=== PATIENT | female | born 2005 | race Caucasian/White ===

== ENCOUNTER 2025-06-03 10:22 | Emergency (ER) | payer OTHER, SELFPAY ==
[2025-06-03 10:23] VITALS: BP 112/71; PULSE 87; RESP 17; TEMP 35.9; O2SAT 100
--- NOTE | 2025-06-03 10:39 | EKG12_ITS ---
Test Reason : Blood Pressure : */* mmHG Vent. Rate : 77 BPM Atrial Rate : 77 BPM P-R Int : 108 ms QRS Dur : 80 ms QT Int : 400 ms P-R-T Axes : 51 89 59 degrees QTcB Int : 452 ms Sinus rhythm with sinus arrhythmia with short MD Otherwise normal ECG Confirmed by Nadeem Díaz ([id number]), communications editor MARY NEFF ([id number]) on 06/05/2025 10:51:03 AM Referred By: Confirmed By: Nadeem Díaz
--- NOTE | 2025-06-03 10:40 | EDS_ITS ---
HPI History of Present Illness Chief Complaint: Syncope Detail of Chief Complaint: Syncope Informant: patient Narrative Narrative: Patient presents with a syncopal episode while in the [employer] today. 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 She remembers watching the [employer] and typically she is not bothered by IVs and such. She then remembers feeling lightheaded and sweaty and got a little bit of tunnel vision lasting she remembers she was on the floor. She is never had an episode like this before. She describes some heartburn today and felt a little bit sweaty earlier this morning when she had the heartburn. While up on the floor earlier today she had some episodes of feeling lightheaded that passed easily. She is currently on her menstrual period and does not think she is . No heart history. Denies chest pain or palpitations or racing heart. PFSH PFSH Medical History no medical history Allergy/AdvReac Type Severity Reaction Status Date / Time No Known Allergies Allergy Verified 06/03/25 10:24 Family History no significant family his Surgical History no surgical history Social History Smoking Status: Never smoker ROS ROS ED Review of Systems ROS Unobtainable: other Constitutional Constitutional ED: Reports lethargy; Denies chills, fever(s), sweats or weight loss Eyes Eyes: Denies blurry vision, change in vision or diplopia ENT ENT ED: Denies rhinorrhea or sore throat Cardiovascular Cardiovascular: Denies chest pain, orthopnea or racing heartbeat Respiratory/Chest Respiratory/Chest: Denies cough, dyspnea, dyspnea on exertion, orthopnea or sputum Gastrointestinal Gastrointestinal: Denies abdominal pain, diarrhea, nausea or vomiting Genitourinary Genitourinary ED: Denies dysuria, hematuria or urinary frequency Musculoskeletal Musculoskeletal: Reports other Details: Right elbow pain ; Denies arthralgias, back pain, myalgias or neck pain Integumentary Denies abscess, Abrasions or rash Neurologic Neurologic: Reports other Details: Syncopal episode ; Denies headache(s) or weakness Psychiatric Psychiatric: Denies anxiety, depression or suicidal thoughts Endocrine Endocrinology: Denies polydipsia, polyphagia or polyuria Hematologic/Lymphatic Hematologic/Lymphatic: Denies easy bleeding, easy bruising or lymphadenopathy Allergic/Immunologic Allergic/Immunologic ED: Denies mouth swelling, tongue swelling or urticaria EXAM Physical Exam Const Vital Signs: 06/03/25 10:23 06/03/25 11:12 06/03/25 11:12 Temperature 96.7 F L Temperature Source Temporal Pulse Rate 87 Pulse Rate [Lying] 74 Pulse Rate [Sitting (for 1 minute prior to obtaining)] 77 Pulse Rate [Standing (for 1 minute prior to obtaining)] 68 Respiratory Rate 17 Respiratory Effort Normal Non-Labored Respiratory Pattern Normal Blood Pressure 112/71 Blood Pressure [Lying] 117/85 H Blood Pressure [Sitting (for 1 minute prior to obtaining)] 118/80 Blood Pressure [Standing (for 1 minute prior to obtaining)] 119/80 Blood Pressure Mean 84 Blood Pressure Mean [Lying] 95 Blood Pressure Mean [Sitting (for 1 minute prior to obtaining)] 92 Blood Pressure Mean [Standing (for 1 minute prior to obtaining)] 93 Pulse Ox 100 Oxygen Delivery Method Room Air 06/03/25 12:00 Temperature Temperature Source Pulse Rate 80 Pulse Rate [Lying] Pulse Rate [Sitting (for 1 minute prior to obtaining)] Pulse Rate [Standing (for 1 minute prior to obtaining)] Respiratory Rate 16 Respiratory Effort Respiratory Pattern Blood Pressure 100/74 Blood Pressure [Lying] Blood Pressure [Sitting (for 1 minute prior to obtaining)] Blood Pressure [Standing (for 1 minute prior to obtaining)] Blood Pressure Mean 82 Blood Pressure Mean [Lying] Blood Pressure Mean [Sitting (for 1 minute prior to obtaining)] Blood Pressure Mean [Standing (for 1 minute prior to obtaining)] Pulse Ox 99 Oxygen Delivery Method Positive well nourished and well developed General Appearance ED: well developed and NAD HEENT Reports TM's clear and moist mucous membranes normocephalic and atraumatic; Negative for trauma or tenderness Tympanic Membrane ED: Yes TM's clear Eyes PERRL and EOMs intact bilaterally General Eye ED: Negative for pale conjunctiva or scleral icterus Neck no lymphadenopathy, supple and no JVD General: Negative for tenderness Chest Wall inspection of chest normal and palpation of chest normal Chest: Negative for tenderness Resp normal respiratory effort and clear to auscultation bilaterally Effort and Inspection: Negative for respiratory distress or pain with movement Auscultation: Negative for rhonchi, wheezes or diminished lung sounds Cardio regular rate, regular rhythm, S1 normal heart sound, S2 normal heart sound and no murmurs Peripheral Pulses: pulses 2+ throughout GI normal to inspection, nondistended, normoactive bowel sounds, soft to palpation, non-tender, non-distended and no masses Back/Spine no CVA tenderness and no thoracic nor lumbar tenderness Extremity Extremity Narrative: Right elbow-patient has small area of ecchymosis and bruising to the posterior o lecranon. No obvious deformity. Good range of motion but somewhat painful. Pain with pronation supination at the elbow. Neurovascular intact distally. General Extremety ED: Negative for edema General Extremity: Negative for edema Neuro oriented x3, CN's II-XII intact bilaterally, no sensory deficits noted and gait normal Sensorium / Orientation: awake, alert, oriented to person, oriented to place and oriented to time Motor Exam: strength 5/5 throughout and strength abnormal Psych mental status grossly normal Skin no rashes or lesions noted and no wounds MDM MDM MDM Narrative Medical decision making narrative: Patient presents to the emergency department after a syncopal episode. Clinically she looks well. Suspect likely vasovagal episode. She has been having some heartburn though and describes some intermittent abdominal discomfort. Currently on her menstrual period. EKG obtained on arrival showed sinus rhythm with ventricular rate of 77 bpm with no acute ST segment changes. No evidence of delta wave. She did have a short MD interval. I did obtain an IV and orthostatics which were negative. I ordered a liter of the same fluid bolus. CBC with differential obtained showed a white count of 19.8 which I suspect is likely reactive. Hemoglobin 14.2 and platelet count of 343. Chemistries unremarkable. hCG was negative. X-rays of the right shoulder and right elbow obtained interpreted by myself as no evidence of fracture or dislocation. On repeat exam she is doing well. I did give her some ibuprofen. Will discharge to home. Lab Data Attestation: I reviewed the patient's lab results. Labs: Laboratory Results - last 24 hr 06/03/25 11:05 WBC 19.8 H RBC 5.25 Hgb 14.2 Hct 43.7 MCV 83.2 MCH 27.0 MCHC 32.5 RDW Std Deviation 37.4 RDW Coeff of [place] 12.5 Plt Count 343 MPV 9.3 Immature Gran % (Auto) 0.600 Neut % (Auto) 87.1 H Lymph % (Auto) 5.8 L [place] % (Auto) 5.7 Eos % (Auto) 0.5 Baso % (Auto) 0.3 Absolute Neuts (auto) 17.3 H Absolute Lymphs (auto) 1.15 Nucleated RBC % 0 Sodium 140 Potassium 3.9 Chloride 105 Carbon Dioxide 23.5 Anion Gap 11 BUN 14 Creatinine 0.76 Estim Creat Clear Calc 106.96 Est GFR (MDRD) Non-Af 115 BUN/Creatinine Ratio 18.4 Glucose 121 H Calcium 9.4 Serum , Qual NEGATIVE Radiography Diagnostic Testin view x-ray of right shoulder obtained interpreted by myself as no evidence of fracture or dislocation. Three-view x-rays of the right elbow interpreted by myself as no evidence of fracture or dislocation. EKG Initial EKG: Attestation: I personally reviewed and interpreted this EKG as follows: Comments: Sinus rhythm with ventricular rate of 77 bpm with short MD. Discharge Plan Triage Chief Complaint: Syncope ED Provider: Nilda Inman Dx/Rx/DC Orders Clinical Impression: Syncope, vasovagal, Contusion of elbow, right Instructions: ED Contusion, Elbow, ED Fainting, Vagal Reaction Primary Care Provider: GALE SKINNER Referrals: NOT,DEFINED [Non-Staff, None] Activity Restrictions/Additional Instructions: Follow-up with your primary care physician within the next 5 to 7 days. Print Language: Samoan Disposition Disposition: Home, Self Care
[2025-06-03] MEDS: Lidocaine 2% Viscous15 ML UDC 15 ML PO (11:02)
[2025-06-03] MEDS: 0.9% Normal Saline (1000mL) 1,000 ML 1000 ML IV (11:04)
[2025-06-03 11:12] VITALS: BP 117/85; BP 118/80; BP 119/80; PULSE 68; PULSE 74; PULSE 77; BMI 19.8
[2025-06-03 11:14] LABS: Hematocrit 43.7 % (37-47); Hemoglobin 14.2 g/dL (12.0-15.0); Immature Granulocytes Count 0.110 X10^3/uL (0.0-0.0); Mean Corp Hgb Conc 32.5 g/dL (32-36); Mean Corpuscular Volume 83.2 fL (81-99); Mean Platelet Vol. 9.3 fl (6.2-12.0); NRBC Flagged by Analyzer 0 % (0-5); Platelet Count 343 K/mm3 (150-450); RBC Distribution Width CV 12.5 % (11.6-14.6); RBC Distribution Width SD 37.4 fl (35.1-43.9); Red Blood Count 5.25 M/mm3 (4.2-5.4); White Blood Count 19.8 K/mm3 (4.4-11.0)
[2025-06-03 11:24] LABS: Internal QC Validated? YES +Cl - CLEAR BKGD; Pregnancy, Serum, hCG Quali. NEGATIVE Negative
[2025-06-03 11:25] LABS: Record Kit Lot#, Serum Preg. 0000980607
[2025-06-03 11:49] LABS: Anion Gap 11 (5-15); BUN 14 mg/dL (4-19); BUN/Creat Ratio 18.4 RATIO (10-20); Calcium,Total 9.4 mg/dL (7.6-11.0); Carbon Dioxide 23.5 mmol/L (21.0-32.0); Chloride 105 mmol/L (98-108); Estimated Creatinine Clearance 106.96 ml/min (50-250); Glucose 121 mg/dL (70-99); Potassium 3.9 mmol/L (3.3-5.1)
[2025-06-03 12:00] VITALS: BP 100/74; PULSE 80; RESP 16; O2SAT 99
--- NOTE | 2025-06-03 12:22 | RAD_ITS ---
PROCEDURE: ELBOW MIN 3 VIEWS 06/03/2025 REASON FOR EXAM: FALL TECHNIQUE: Procedure Code: RADEL Modality: DX Procedure: ELBOW MIN 3 VIEWS Laterality: Right elbow COMPARISON: None FINDINGS: Bones: No fracture seen. Joints: Normal alignment. Joint spaces preserved. No arthropathic features. Soft tissues: Soft tissues are unremarkable. Other: RAD/Elbow min 3 Views IMPRESSION: No acute abnormality is seen. Reading Location: [place] [id number]
--- NOTE | 2025-06-03 12:27 | RAD_ITS ---
PROCEDURE: SHOULDER MIN 2 VIEWS 06/03/2025 REASON FOR EXAM: FALL TECHNIQUE: Procedure Code: RADSH Modality: DX Procedure: SHOULDER MIN 2 VIEWS Laterality: Right shoulder. COMPARISON: None FINDINGS: Bones: No fracture seen. Joints: Grade 1 right AC joint subluxation. Soft tissues: Soft tissues are unremarkable. Other: RAD/Shoulder min 2 Views IMPRESSION: Grade 1 right AC joint subluxation. Reading Location: [place] [id number]
[2025-06-03 12:52] VITALS: BP 100/74; PULSE 80; RESP 16; TEMP 36.8; O2SAT 99
== END 2025-06-03 12:54 | disposition home or self-care (01) ==
PROVIDERS: Emergency Provider Emergency Medicine; Visit Provider Emergency Medicine
DX: R55 Syncope and collapse (principal); S50.01XA Contusion of right elbow, initial encounter; W19.XXXA Unspecified fall, initial encounter; Y99.0 Civilian activity done for income or pay
CPT/HCPCS: 73030; 73080; 80048; 84703; 85025; 93005; 96360; 99284; A4216